=== PATIENT | female | born 1950 | race Hispanic/Latino ===

== ENCOUNTER 2018-09-01 13:07 | Outpatient (CLI) | payer OTHER | END 2018-09-01 13:08 | disposition home or self-care (01) | LOC: DTY/OP 13:07 | PROVIDERS: ATTEND Surgery | DX: E66.01 Morbid (severe) obesity due to excess calories (principal); G47.30 Sleep apnea, unspecified; I10 Essential (primary) hypertension | CPT/HCPCS: 97802 ==

== ENCOUNTER 2018-10-29 10:00 | Inpatient (IN) | payer MEDICARE ==
[2018-10-29 10:49] VITALS: BMI 42.0
[2018-11-10] MEDS ORDERED: Heparin 5,000 UNITS/ML VIAL ONE (11:03)
[2018-11-10] MEDS ORDERED: CEFAZOLIN 2 GM/50 ML BAG ONE (11:03)
[2018-11-10] MEDS ORDERED: Bupivacaine/Epinephrine 0.25% 30 ML VIAL ONE (11:42)
[2018-11-10] MEDS ORDERED: Fentanyl 100 MCG/2 ML VIAL ONE ×4 (11:48→14:24)
[2018-11-10] MEDS ORDERED: Zolpidem Tartrate 5 MG TAB PO PRN (13:56)
[2018-11-10] MEDS ORDERED: diphenhydrAMINE 50 MG/ML VIAL IM/IV PRN (13:56)
[2018-11-10] MEDS ORDERED: diphenhydrAMINE 25 MG CAP PO PRN (13:56)
[2018-11-10] MEDS ORDERED: fentaNYL Citrate/PF 2,000 MCG in Sodium Chloride 0.9% 60 ML IV PRN (13:56)
[2018-11-10] MEDS ORDERED: Promethazine HCl 25 MG/ML VIAL IM PRN ×2 (13:56→15:48)
[2018-11-10] MEDS ORDERED: Ondansetron PF 4 MG/2 ML Vial IVP PRN ×2 (13:56→15:48)
[2018-11-10] MEDS ORDERED: Naloxone HCl 0.4 mg/ml Vial IV PRN (13:56)
[2018-11-10] MEDS ORDERED: PROPOFOL 200 MG/20 ML VIAL ONE (14:57)
[2018-11-10] MEDS ORDERED: ePHEDrine/0.9% NaCl/PF SYRINGE 50 mg/10 ml ONE (14:57)
[2018-11-10] MEDS ORDERED: Metoclopramide HCl 10 MG/2 ML VIAL ONE (14:57)
[2018-11-10] MEDS ORDERED: Dexamethasone 20 MG/5 ML VIAL ONE (14:57)
[2018-11-10] MEDS ORDERED: Lidocaine 1% PF 5 ML VIAL ONE (14:57)
[2018-11-10] MEDS ORDERED: Glycopyrrolate 0.2 MG/ML 5 ML SYRINGE ONE (14:57)
[2018-11-10] MEDS ORDERED: Diazepam 5 MG TAB PO PRN (15:48)
[2018-11-10] MEDS ORDERED: hydrALAZINE 20 MG/ML VIAL SLOW IVP PRN (15:48)
[2018-11-10] MEDS ORDERED: PROVENTIL INHALER 6.7 G (200 INHALATIONS) INH PRN (15:48)
[2018-11-10] MEDS ORDERED: Dextrose 5% in Water 1,000 ML IV PRN (15:48)
[2018-11-10] MEDS ORDERED: diphenhydrAMINE 50 MG/ML VIAL IVP PRN (15:48)
[2018-11-10] MEDS ORDERED: Dextrose 50% Abboject 50 ML SYRINGE SLOW IVP PRN (15:48)
[2018-11-10] MEDS: D5 1/2 NS w/20 mEq KCL 1,000 ML IV SCH ×2 (16:23→21:28)
[2018-11-10] MEDS: Acetaminophen 1,000 MG in Premix Bag 1 BAG IVPB SCH (17:32)
[2018-11-10] MEDS: Mometasone/Formoterol 120 PUFF INHALER INH SCH (18:55)
[2018-11-10] MEDS ORDERED: Enoxaparin Sodium 40 MG/0.4 ML SYRINGE SC SCH (21:00)
[2018-11-10] MEDS: hydrALAZINE 25 MG TAB PO SCH (21:24)
[2018-11-11] MEDS: Acetaminophen 1,000 MG in Premix Bag 1 BAG IVPB SCH ×3 (00:15→10:57)
[2018-11-11] MEDS: D5 1/2 NS w/20 mEq KCL 1,000 ML IV SCH (05:34)
[2018-11-11] MEDS ORDERED: Levothyroxine Sodium 25 MCG TAB PO SCH (06:00)
[2018-11-11 06:24] LABS: #Lymphocytes 0.5 thou/uL (1.20-3.40); #Monocytes 0.3 thou/uL (0.11-0.59); #Neutrophils 3.9 thou/uL (1.40-6.50); %Basophils 0.1 % (0.0-1.0); %Monocytes 5.7 % (0.0-10.0); %Neutrophils 83.2 % (42.0-75.0); Hemoglobin 10.2 g/dL (12.0-16.0); Mean Corpuscular HGB CONC 34.3 g/dL (32.0-36.0); Mean Corpuscular Hemoglobin 37.6 pg (27.0-31.0); Mean Platelet Volume 6.7 fL (7.4-10.4); Platelet Count 280 thou/uL (130-400); RBC Distribution Width 12.7 % (11.5-14.5); Red Blood Cell (RBC) Count 2.71 mill/uL (4.20-5.40); White Blood Cell (WBC) Count 4.7 thou/uL (4.8-10.8)
[2018-11-11 06:45] LABS: Anion Gap 11 mmol/L (10-20); BUN (Urea Nitrogen) 25 mg/dL (9.8-20.1); Calc. Creatinine Clearance 63 mL/min (70-130); Calcium 8.9 mg/dL (7.8-10.44); Carbon Dioxide 19 mmol/L (23-31); Chloride 109 mmol/L (98-107); Estimated GFR-MDRD 34; Glucose 102 mg/dL (80-115); Potassium 4.3 mmol/L (3.5-5.1); Sodium 135 mmol/L (136-145)
[2018-11-11] MEDS: Mometasone/Formoterol 120 PUFF INHALER INH SCH (07:20)
[2018-11-11] MEDS: hydrALAZINE 25 MG TAB PO SCH (08:10)
[2018-11-11] MEDS ORDERED: Pantoprazole 40 MG VIAL IVP SCH (09:00)
[2018-11-11] MEDS ORDERED: predniSONE 5 MG TAB PO SCH (09:00)
[2018-11-11] MEDS ORDERED: Hydrocodone-Acetamin 15 ML UDCUP PO PRN (10:51)
[2018-11-11] MEDS ORDERED: Diazepam 5 MG TAB PO PRN (10:51)
[2018-11-11 12:10] VITALS: BP 126/77; TEMP 97.8
--- NOTE | 2018-11-11 14:51 | OP ---
DATE OF PROCEDURE: 11/10/2018 PREOPERATIVE DIAGNOSES: 1. Morbid obesity with body mass index of 44. 2. Hypertension. POSTOPERATIVE DIAGNOSES: 1. Morbid obesity with body mass index of 44. 2. Hypertension. 3. Paraesophageal hiatal hernia. PROCEDURES PERFORMED: 1. Laparoscopic sleeve gastrectomy with Sidman staple line reinforcements and 38-[place] bougie. 2. Hiatal hernia repair without fundoplication or mesh. 3. Esophagogastroduodenoscopy. ANESTHESIA: General. ESTIMATED BLOOD LOSS: Minimal. COMPLICATIONS: None. SPECIMEN: Stomach. FINDINGS: Normal postoperative EGD. DESCRIPTION OF PROCEDURE: The patient was taken to the operating room and laid supine in the operating room table. After general site was obtained, the arms and legs were double strapped to bariatric table. OG tube was used to decompress the stomach. Left subcostal 5-mm Optiview trocar was placed in usual fashion and high-flow pneumoperitoneum was obtained. Left and right abdominal 12-mm ports as well as a right subcostal 5-mm port were placed under direct visualization. A 5 mm incision was made at the xiphoid and the Pierre was used to raise the liver off the GE junction. The short gastrics were taken down from mid body of stomach to left monie of the diaphragm. Left monie, posterior fundus, and angle of His were completely dissected, revealing a paraesophageal hiatal hernia. Short gastrics were taken down to a distance of 6 cm proximal to the pylorus. The gastrohepatic ligament was opened exposing the right monie. The mediastinum was entered and circumferential dissection of the esophagus was performed. A 38-bougie was brought in and its tip left in the antrum of the stomach. Multiple loads of the [place] stapling device with Sidman staple line reinforcements were used to perform the sleeve. The first was fired up at a distance of 6 cm proximal to the pylorus. Care was taken to avoid being too close to incisura. Multiple loads were then fired up along the bougie. Stomach was completely transected at the angle of His. Stomach was removed from the left abdominal incision. The fascial defect was closed using GraNee needle 0 Vicryl tie. With the bougie still in place, one Ethibond suture in the Ti-knot system was used to close the crura posteriorly. No bleeding on the staple line. Bougie was removed and an EGD scope was passed through esophagus, stomach to the level of duodenum without obstruction. There was no stricture at the incisura. There was no evidence of leakage or bleeding, internally or externally on the stomach. There was no evidence of stenosis or stricture at the diaphragmatic hiatus or the GE junction. EGD scope was used to decompress the stomach. It was pulled and removed. Pierre retractor was removed under direct visualization without bleeding. Pneumoperitoneum was let down. Vicryl was used to close the fascial defect from the left abdominal incision. All incisions were irrigated and closed using 4-0 Monocryl and Dermabond. The patient was sent to Recovery in stable condition. All instrument counts, needle counts, and lap counts were correct. Job ID: [id number]
--- NOTE | 2018-11-12 04:13 | DIS ---
DATE OF ADMISSION: 11/10/2018 DATE OF DISCHARGE: 11/11/2018 ADMITTING DIAGNOSES: Morbid obesity and hypertension. DISCHARGE DIAGNOSES: Morbid obesity and hypertension. PROCEDURES: Laparoscopic sleeve gastrectomy and hiatal hernia repair by Dr. Wallace without complication. CONDITION ON DISCHARGE: Improved. STAFF: Jose Antonio Wallace MD HOSPITAL COURSE: On postop day 1, the patient is tolerating a liquid diet. She is ambulatory. Her pain is controlled. She denies nausea. PHYSICAL EXAMINATION: VITAL SIGNS: She is afebrile and her vital signs are stable. ABDOMEN: Soft. Her wounds are healing well. She is discharged to home. She will follow up with me in 2 weeks. Job ID: [id number]
== END 2018-11-11 12:00 | disposition home or self-care (01) | DRG 621 ==
LOC: SURG A 11-10 09:37 → SJJU 11-10 14:55
PROVIDERS: ADMIT Surgery; ATTEND Surgery
PROC: 0DB64Z3 Excision of Stomach, Percutaneous Endoscopic Approach, Vertical (ICD-10-PCS; principal; 2018-11-10)
PROC: 0BQT4ZZ Repair Diaphragm, Percutaneous Endoscopic Approach (ICD-10-PCS; 2018-11-10)
PROC: 0DJ08ZZ Inspection of Upper Intestinal Tract, Via Natural or Artificial Opening Endoscopic (ICD-10-PCS; 2018-11-10)
DX: E66.01 Morbid (severe) obesity due to excess calories (principal); I10 Essential (primary) hypertension; Z68.41 Body mass index [BMI] 40.0-44.9, adult; K44.9 Diaphragmatic hernia without obstruction or gangrene; G47.30 Sleep apnea, unspecified; Z96.652 Presence of left artificial knee joint; Z90.89 Acquired absence of other organs; Z90.49 Acquired absence of other specified parts of digestive tract; Z90.710 Acquired absence of both cervix and uterus; Z98.890 Other specified postprocedural states
CPT/HCPCS: 36415; 80048; 85025; 88307; 88312; 94664; C9113; J0131; J1100; J1200; J1644; J1650; J2001; J2405; J2550; J2704; J2765; J3010; J7050

== ENCOUNTER 2018-10-29 10:28 | Outpatient (CLI) | payer MEDICARE ==
[2018-10-29 11:10] LABS: Hemoglobin A1c 4.6 % (4.0-6.0)
[2018-10-29 11:32] LABS: ALT (SGPT) 8 U/L (8-55); AST (SGOT) 16 U/L (5-34); Albumin 4.1 g/dL (3.4-4.8); Alkaline Phosphatase 67 U/L (40-150); Anion Gap 14 mmol/L (10-20); BUN (Urea Nitrogen) 19 mg/dL (9.8-20.1); Bilirubin, Direct 0.4 mg/dL (0.1-0.3); Calc. Creatinine Clearance 0 mL/min (70-130); Calcium 8.8 mg/dL (7.8-10.44); Carbon Dioxide 19 mmol/L (23-31); Chloride 108 mmol/L (98-107); Estimated GFR-MDRD 30; Globulin 2.9 g/dL (2.4-3.5); Glucose 96 mg/dL (80-115); Potassium 4.1 mmol/L (3.5-5.1); Sodium 137 mmol/L (136-145)
[2018-10-29 11:59] LABS: #Eosinphils 0.1 thou/uL (0.0-0.7); #Lymphocytes 0.5 thou/uL (1.20-3.40); #Monocytes 0.2 thou/uL (0.11-0.59); #Neutrophils 4.2 thou/uL (1.40-6.50); %Eosinophils 1.5 % (0.0-10.0); %Lymphocytes 10.5 % (21.0-51.0); %Monocytes 4.5 % (0.0-10.0); %Neutrophils 83.6 % (42.0-75.0); Hemoglobin 11.3 g/dL (12.0-16.0); MDiff Complete? YES; Macrocytosis SLIGHT = 6-15 cells (100X) (0-5/hpf); Mean Corpuscular HGB CONC 34.8 g/dL (32.0-36.0); Mean Corpuscular Hemoglobin 37.9 pg (27.0-31.0); Mean Platelet Volume 6.8 fL (7.4-10.4); PLT Morphology Comment Appears Adequate; Platelet Count 242 thou/uL (130-400); Red Blood Cell (RBC) Count 2.99 mill/uL (4.20-5.40)
--- NOTE | 2018-10-29 13:21 | RAD ---
TWO VIEW CHEST: Comparison: 03-08-15 Indication: Pre-operative evaluation. FINDINGS: There is no lobar consolidation, effusion, or pneumothorax. Mild interstitial prominence of each lung is present with a mild degree of hyperinflation. Cardiac silhouette is mildly enlarged, stable. No s ignificant interval change otherwise depicted. IMPRESSION: 1. COPD. 2. Mild enlargement of the cardiac silhouette. Correlate clinically. POS: JUAN
== END 2018-10-29 10:29 | disposition home or self-care (01) ==
LOC: LABBT 10:28
PROVIDERS: ATTEND Surgery
DX: Z01.818 Encounter for other preprocedural examination (principal); I10 Essential (primary) hypertension; G47.30 Sleep apnea, unspecified
CPT/HCPCS: 71046; 80053; 80076; 83036; 85025; 93005; 93010